=== PATIENT | female | born 1970 | race Caucasian/White ===

== ENCOUNTER 2017-07-29 09:13 | Emergency (ER) | payer OTHER ==
[~2017-07-29] VITALS: Ht 165.1 cm; Wt 70.5 kg
[2017-07-29 09:14] VITALS: BP 172/118
[2017-07-29] MEDS ORDERED: IBUPROFEN 200 MG TABLET ONE (09:45)
[2017-07-29] MEDS ORDERED: IBUPROFEN 200 MG TABLET PO ONE (10:00)
== END 2017-07-29 10:26 | disposition home or self-care (01) ==
LOC: ED 09:50
DX: S29.012A Strain of muscle and tendon of back wall of thorax, initial encounter (principal); S16.1XXA Strain of muscle, fascia and tendon at neck level, initial encounter; I10 Essential (primary) hypertension; Z88.5 Allergy status to narcotic agent; V49.49XA Driver injured in collision with other motor vehicles in traffic accident, initial encounter; Y93.I9 Activity, other involving external motion; Y92.488 Other paved roadways as the place of occurrence of the external cause; Y99.8 Other external cause status
CPT/HCPCS: 99283